=== PATIENT | female | born 1970 | race Caucasian/White ===

== ENCOUNTER 2021-07-01 16:23 | Inpatient (IN) | payer BC ==
[~2021-07-01] VITALS: Ht 160 cm; Wt 95.7 kg
--- NOTE | 2021-07-01 16:25 | NUR ---
PT TRANSPORTED TO CT VIA GURNEY WITH ACLS PROTOCOLS IN PLACE
--- NOTE | 2021-07-01 16:26 | NUR ---
TO ER BED 10, BIB FAMILY C/O HEADACHE X 1 WEEK AND L SIDED WEAKNESS, DIZZINESS, LKW 1557, STATED HAD BLURRED VISION ON THE LEFT PRIOR TO ARRIVAL, AAOX3, BREATHING EVEN AND NON LABORED, HR 109 UPON ARRIVAL, CONNECTED TO MONITOR, DR MAY AT BEDSIDE FOR EVAL
--- NOTE | 2021-07-01 16:27 | NUR ---
TELE REQUEST SENT
[2021-07-01] MEDS ORDERED: CT SWABBABLE VALVE TRANS SET 1 EA INFUS.SET MC ONE (16:28)
[2021-07-01] MEDS ORDERED: IOHEXOL-350 100 ML VIAL IV ONE (16:28)
[2021-07-01] MEDS ORDERED: IV NS 0.9% 250 ML IV ONE (16:29)
--- NOTE | 2021-07-01 16:37 | NUR ---
PT BACK FROM CT VIA [facility]
--- NOTE | 2021-07-01 16:45 | NUR ---
COVID SWAB DONE AND SENT TO LAB
[2021-07-01 17:18] LABS: BASOPHILS # (AUTO) 0.1 K/uL (0.0-0.2); BASOPHILS % (AUTO) 0.9 % (0.0-2.0); EOSINOPHILS % (AUTO) 2.6 % (0.0-6.0); HEMATOCRIT 38 % (33-45); HEMOGLOBIN 11.9 g/dL (11.5-14.8); LYMPHOCYTES # (AUTO) 2.9 K/uL (0.8-4.8); LYMPHOCYTES % (AUTO) 38.8 % (20.0-44.0); MEAN CORPUSCULAR HGB CONC 32 g/dl (31.0-36.0); MEAN CORPUSCULAR VOLUME 78 fL (82-100); MONOCYTES # (AUTO) 0.4 K/uL (0.1-1.30); MONOCYTES % (AUTO) 4.7 % (2.0-12.0); PLATELET COUNT (AUTO) 293 K/uL (150-450); RED BLOOD CELL COUNT(AUTO) 4.84 MIL/uL (4.0-5.2); WHITE BLOOD COUNT (AUTO) 7.5 K/uL (4.3-11.0)
--- NOTE | 2021-07-01 17:35 | NUR ---
NEURO ON-CALL,DR MABEL ALVARADO, WILL GIVE US A CALL BACK TO SPEAK WITH DR MAY
--- NOTE | 2021-07-01 17:54 | NUR ---
SHANNANLOGIST, CHARLA ALVARADO, SPEAKING TO DR. MAY
[2021-07-01] MEDS ORDERED: MECLIZINE HCL 25 MG TABLET ONE (17:58)
[2021-07-01] MEDS ORDERED: METOCLOPRAMIDE HCL 10 MG/2 ML VIAL IV ONE (18:00)
[2021-07-01] MEDS ORDERED: MECLIZINE HCL 12.5 MG TABLET PO ONE (18:00)
[2021-07-01 18:25] LABS: CALCIUM, SERUM 8.5 mg/dL (8.5-10.1); CARBON DIOXIDE 24 mmol/L (21-32); CHLORIDE 101 mmol/L (98-107); GLUCOSE 135 mg/dL (74-106); POTASSIUM 3.9 mmol/L (3.5-5.1); SODIUM SERUM 135 mmol/L (136-145); UREA NITROGEN, BLOOD 11 mg/dL (7-18)
--- NOTE | 2021-07-01 18:45 | NUR ---
SPOKE TO SON LEOLA [phone]
--- NOTE | 2021-07-01 19:17 | NUR ---
REPORT GIVEN TO JUAN VICTORIA FOR THERESE
[2021-07-01 21:50] VITALS: BP 110/59
--- NOTE | 2021-07-01 21:53 | NUR ---
PATIENT TRANSFERRED UNDER ACLS.
[2021-07-01] MEDS ORDERED: SIMVASTATIN 40 MG TABLET PO SCH (22:00)
--- NOTE | 2021-07-01 22:00 | NUR ---
TELE/RN ADMITTING NOTE RECEIVED REPORT FROM FIELD CHECKER JUAN. PATIENT ARRIVED TO UNIT VIA GURNEY AND 2 STAFF MEMBERS. ADMITTED TO ROOM 322-1 WITH ADMITTING DX OF R/O CVA. PATIENT IS ALERT AND ORIENTED X 4. ABLE TO MAKE NEEDS KNOWN. DENIES PAIN AT THIS TIME. CONTINUES ON ROOM AIR WITH NO S/SX OF RESPIRATORY DISTRESS NOTED. IV ACCESS TO LEFT AC #18G INTACT, PATENT AND SALINE LOCKED. NURSING SWALLOW EVAL DONE WITH PATIENT PASSING. NOTIFIED CHAIR MAKER MD BRENT GHOSH. DIET CHANGED TO NPO EXCEPT MEDS. ST TO EVAL IN AM. NIHSS SCORE 0. PATIENT DENIES NUMBNESS/TINGLING/VISUAL CHANGES AT THIS TIME. BEDSIDE COMMODE IN PLACE. PATIENT STATES SHE IS FULLY VACCINATED AGAINST COVID-19 WITH EMMANUEL AND EMMANUEL VACCINE (10/12/20) AND MODERNA BOOSTER (06/12/21). SKIN CHECK PERFORMED ON ADMISSION WITH NO SKIN ISSUES NOTED AT THIS TIME. PATIENT CONNECTED TO TELE MONITOR WITH CURRENT READING SR HR 68. PATIENT ORIENTED TO ROOM, CALL LIGHT AND UNIT. CALL LIGHT WITHIN REACH. ASPIRATION, FALL AND SAFETY PRECAUTIONS MAINTAINED. WILL CONTINUE TO MONITOR.
[2021-07-01] MEDS: BLOOD SUGAR DIAGNOSTIC 1 EACH STRIP IN SCH (22:46)
--- NOTE | 2021-07-01 23:00 | NUR ---
TELE/RN NOTE PATIENTS DOMESTIC PARTNER RHYS PHONE # [phone]
[2021-07-01 23:03] VITALS: BP 110/59
[2021-07-01] MEDS ORDERED: SIMVASTATIN 20 MG TABLET ONE (23:12)
[2021-07-02] VITALS: BP 112/59
[2021-07-02] MEDS ORDERED: BLOOD SUGAR DIAGNOSTIC 1 EACH STRIP IN SCH
[2021-07-02 04:00] VITALS: BP 114/47
[2021-07-02 06:38] LABS: BASOPHILS # (AUTO) 0.1 K/uL (0.0-0.2); EOSINOPHILS % (AUTO) 1.5 % (0.0-6.0); HEMATOCRIT 34 % (33-45); HEMOGLOBIN 10.8 g/dL (11.5-14.8); LYMPHOCYTES # (AUTO) 1.7 K/uL (0.8-4.8); LYMPHOCYTES % (AUTO) 31.6 % (20.0-44.0); MEAN CORPUSCULAR HGB CONC 32 g/dl (31.0-36.0); MEAN CORPUSCULAR VOLUME 78 fL (82-100); MONOCYTES # (AUTO) 0.2 K/uL (0.1-1.30); MONOCYTES % (AUTO) 3.8 % (2.0-12.0); NEUTROPHILS # (AUTO) 3.4 K/uL (1.8-8.9); NEUTROPHILS % (AUTO) 62.1 % (43.0-81.0); PLATELET COUNT (AUTO) 259 K/uL (150-450); RED BLOOD CELL COUNT(AUTO) 4.37 MIL/uL (4.0-5.2); WHITE BLOOD COUNT (AUTO) 5.4 K/uL (4.3-11.0)
[2021-07-02] MEDS: BLOOD SUGAR DIAGNOSTIC 1 EACH STRIP IN SCH ×4 (06:40→21:43)
--- NOTE | 2021-07-02 06:40 | NUR ---
TELE/RN CLOSING NOTE PATIENT CURRENTLY RESTING IN BED. AWAKE, ALERT AND ORIENTED X 4. ABLE TO MAKE NEEDS KNOWN. DENIES PAIN AT THIS TIME. CONTINUES ON ROOM AIR WITH NO S/SX OF RESPIRATORY DISTRESS NOTED. IV ACCESS TO LEFT AC #18G INTACT, PATENT AND SALINE LOCKED. CONTINUES ON NPO WITH MEDS TILL ST EVAL THIS AM. TELE MONITOR IN PLACE WITH CURRENT READING SR HR 63. DENIES NUMBNESS/TINGLING/HEADACHES/VISUAL CHANGES AT THIS TIME. CALL LIGHT WITHIN REACH. ASPIRATION, FALL AND SAFETY PRECAUTIONS MAINTAINED. WILL ENDORSE PLAN OF CARE TO ONCOMING SHIFT.
[2021-07-02 07:00] LABS: CALCIUM, SERUM 8.7 mg/dL (8.5-10.1); CREATININE 0.9 mg/dL (0.6-1.3); POTASSIUM 3.9 mmol/L (3.5-5.1)
--- NOTE | 2021-07-02 07:46 | NUR ---
CAN DRAGGER OPENING NOTES RECEIVED PATIENT RESTING IN BED. AWAKE, ALERT AND ORIENTED X 4. ABLE TO MAKE NEEDS KNOWN. DENIES PAIN AT THIS TIME. CONTINUES ON ROOM AIR WITH NO S/SX OF RESPIRATORY DISTRESS NOTED. IV ACCESS TO LEFT AC #18G INTACT, PATENT AND SALINE LOCKED. NPO EXCEPT MEDS TILL ST EVAL THIS AM. TELE MONITOR IN PLACE WITH CURRENT READING SR 78 BPM. DENIES NUMBNESS/TINGLING/HEADACHES/VISUAL CHANGES AT THIS TIME. CALL LIGHT WITHIN REACH. ASPIRATION, FALL AND SAFETY PRECAUTIONS MAINTAINED. WILL CONTINUE TO MONITOR PATIENT.
[2021-07-02 08:00] VITALS: BP 107/59
[2021-07-02] MEDS: ASPIRIN 81 MG TAB.CHEW PO SCH (08:03)
[2021-07-02 12:00] VITALS: BP 128/69
[2021-07-02 16:00] VITALS: BP 115/68
--- NOTE | 2021-07-02 18:40 | NUR ---
MAGNETIC PROSPECTING OPERATOR CLOSING NOTES PATIENT RESTING IN BED. AWAKE, ALERT AND ORIENTED X 4. ABLE TO MAKE NEEDS KNOWN. DENIES PAIN AT THIS TIME. CONTINUES ON ROOM AIR WITH NO S/SX OF RESPIRATORY DISTRESS NOTED. IV ACCESS TO LEFT AC #18G INTACT, PATENT AND SALINE LOCKED. TELE MONITOR IN PLACE WITH CURRENT READING SR. DENIES NUMBNESS/TINGLING/HEADACHES/VISUAL CHANGES DURING SHIFT. CALL LIGHT WITHIN REACH. ASPIRATION, FALL AND SAFETY PRECAUTIONS MAINTAINED. WILL ENDORSE TO EDITING COMPUTER PUBLISHER NURSE FOR THERESE.
--- NOTE | 2021-07-02 19:33 | NUR ---
RN OPENING NOTES RECEIVED PT IN BED, AWAKE. AOx4, ABLE TO MAKE NEEDS KNOWN. ON RA AND TOLERATING WELL. NO SOB NOTED. NO S/SX OF RESPIRATORY DISTRESS NOTED. IV ACCESS IN LAC #18. TELE MONITOR DETECTS SINUS RHYTHM WITH RATE OF 81. IV IS INTACT, PATENT, AND FLUSHING WELL. SAFETY PRECAUTIONS IN PLACE: BED IN LOWEST, LOCKED POSITION, SIDERAILS UPx2, AND BRAKES ON. TABLE AND CALL LIGHT WITHIN REACH. WILL CONTINUE TO MONITOR.
[2021-07-02 20:00] VITALS: BP 122/66
[2021-07-02] MEDS: SIMVASTATIN 20 MG TABLET PO SCH (21:34)
[2021-07-03] VITALS: BP 131/73
[2021-07-03 04:00] VITALS: BP 115/71
--- NOTE | 2021-07-03 05:34 | NUR ---
CARDIOVASCULAR SURGICAL TECH (JUSTO) NOTIFIED VIA TEXT.
[2021-07-03] MEDS: BLOOD SUGAR DIAGNOSTIC 1 EACH STRIP IN SCH ×5 (06:42→22:06)
--- NOTE | 2021-07-03 06:43 | NUR ---
RN CLOSING NOTES PT IN BED, AWAKE, USING PERSONAL COMPUTER. AOx4, ABLE TO MAKE NEEDS KNOWN. ON RA AND TOLERATING WELL. NO SOB NOTED. NO S/SX OF RESPIRATORY DISTRESS NOTED. IV ACCESS IN LAC #18. TELE MONITOR DETECTS SINUS RHYTHM WITH RATE OF 80s. IV IS INTACT, PATENT, AND FLUSHING WELL. AL NEEDS MET. PT KEPT CLEAN AND DRY. SAFETY PRECAUTIONS IN PLACE: BED IN LOWEST, LOCKED POSITION, SIDERAILS UPx2, AND BRAKES ON. TABLE AND CALL LIGHT WITHIN REACH. WILL ENDORSE TO ONCOMING SHIFT FOR THERESE.
--- NOTE | 2021-07-03 07:19 | NUR ---
CONTINUOUS MINER OPENING NOTES PT IN BED, AWAKE, USING PERSONAL COMPUTER. AOx4, ABLE TO MAKE NEEDS KNOWN. ON RA AND TOLERATING WELL. GCS 15 WITH NO MOTOR OR SENSORY DEFICIT AT THIS TIME. NO SOB NOTED. NO S/SX OF RESPIRATORY DISTRESS NOTED. IV ACCESS IN LAC #18. TELE MONITOR DETECTS SINUS RHYTHM WITH RATE OF 80s. IV IS INTACT, PATENT, AND FLUSHING WELL. AL NEEDS MET. PT KEPT CLEAN AND DRY. SAFETY PRECAUTIONS IN PLACE: BED IN LOWEST, LOCKED POSITION, SIDERAILS UPx2, AND BRAKES ON. TABLE AND CALL LIGHT WITHIN REACH. WILL CONTINUE TO MONITOR PATIENT.
[2021-07-03 08:00] VITALS: BP 124/83
[2021-07-03] MEDS: ASPIRIN 81 MG TAB.CHEW PO SCH (09:09)
--- NOTE | 2021-07-03 09:49 | NUR ---
OCC MED PHYSICIAN NOTE PATIENT PICKED-UP FOR MRI, TRANSPORTED VIA WHEELCHAIR. IN STABLE CONDITION.
[2021-07-03] MEDS ORDERED: MULT-1200 PO (11:59)
[2021-07-03 12:00] VITALS: BP 111/64
[2021-07-03] MEDS ORDERED: GADOTERATE MEGLUMINE 10 MMOL/20 ML VIAL IV ONE (14:02)
[2021-07-03 16:00] VITALS: BP 125/77
--- NOTE | 2021-07-03 19:17 | NUR ---
WASH DRILLER CLOSING NOTES PT IN BED, AWAKE, USING PERSONAL COMPUTER. AOx4, ABLE TO MAKE NEEDS KNOWN. ON RA AND TOLERATING WELL. GCS 15 WITH NO MOTOR OR SENSORY DEFICIT AT THIS TIME. NO SOB NOTED. NO S/SX OF RESPIRATORY DISTRESS NOTED. IV ACCESS IN LAC #18. TELE MONITOR DETECTS SINUS RHYTHM WITH RATE OF 80s. IV IS INTACT, PATENT, AND FLUSHING WELL. AL NEEDS MET. PT KEPT CLEAN AND DRY. SAFETY PRECAUTIONS IN PLACE: BED IN LOWEST, LOCKED POSITION, SIDERAILS UPx2, AND BRAKES ON. TABLE AND CALL LIGHT WITHIN REACH. WILL ENDORSE TO NEXT SHIFT FOR CONTINUITY OF CARE.
--- NOTE | 2021-07-03 19:50 | NUR ---
HEALTH CONCIERGE OPENING RECEIVED PATIENT IN BED WITH EYES CLOSED, EASY TO AROUSE. A/OX4. NO S/S OF APPARENT DISTRESS ON ROOM AIR. DENIES PAIN AT THIS TIME. TELE MONITOR READING SR 89 BPM. NO FLUIDS RUNNING AT THIS TIME. NO NEEDS AT THIS TIME. SAFETY IN PLACE. WILL CONTINUE WITH PATIENT'S CARE PLAN.
[2021-07-03 20:07] VITALS: BP 122/69
--- NOTE | 2021-07-03 21:20 | NUR ---
CAREER SERVICES DIRECTOR NOTE ECHO BEING DONE AT THIS TIME.
[2021-07-03] MEDS: SIMVASTATIN 20 MG TABLET PO SCH (21:59)
--- NOTE | 2021-07-03 22:07 | NUR ---
COMMERCIAL DIRECTOR NOTE BLOOD SUGAR 112
[2021-07-04 00:03] VITALS: BP 116/68
[2021-07-04 04:02] VITALS: BP 109/60
[2021-07-04 05:56] LABS: BASOPHILS # (AUTO) 0.1 K/uL (0.0-0.2); BASOPHILS % (AUTO) 0.8 % (0.0-2.0); EOSINOPHILS % (AUTO) 2.8 % (0.0-6.0); HEMATOCRIT 36 % (33-45); HEMOGLOBIN 11.4 g/dL (11.5-14.8); LYMPHOCYTES % (AUTO) 29.4 % (20.0-44.0); MEAN CORPUSCULAR HGB CONC 32 g/dl (31.0-36.0); MEAN CORPUSCULAR VOLUME 77 fL (82-100); MONOCYTES # (AUTO) 0.3 K/uL (0.1-1.30); MONOCYTES % (AUTO) 4.9 % (2.0-12.0); NEUTROPHILS # (AUTO) 4.1 K/uL (1.8-8.9); NEUTROPHILS % (AUTO) 62.1 % (43.0-81.0); PLATELET COUNT (AUTO) 241 K/uL (150-450); RED BLOOD CELL COUNT(AUTO) 4.64 MIL/uL (4.0-5.2); WHITE BLOOD COUNT (AUTO) 6.6 K/uL (4.3-11.0)
[2021-07-04 06:38] LABS: CALCIUM, SERUM 8.6 mg/dL (8.5-10.1); CREATININE 0.8 mg/dL (0.6-1.3); MAGNESIUM 2.3 mg/dL (1.8-2.4)
[2021-07-04] MEDS: BLOOD SUGAR DIAGNOSTIC 1 EACH STRIP IN SCH ×2 (06:44→12:03)
--- NOTE | 2021-07-04 06:45 | NUR ---
IVY VICTORIA NOTE BLOOD SUGAR 95. Addendum: 07/04/21 at 0646 by THIAGO MORALES RN DISREGARD
--- NOTE | 2021-07-04 06:46 | NUR ---
SALES FORCE DEVELOPER NOTE BLOOD SUGAR 102.
--- NOTE | 2021-07-04 07:27 | NUR ---
IS SUPPORT ANALYST NOTE REPORT GIVEN TO LIANET FOR CONTINUITY OF CARE. NO SIGNIFICANT CHANGE. NEEDS ATTENDED.
--- NOTE | 2021-07-04 07:38 | NUR ---
RN OPENING NOTE- RECEIVED PATIENT IN BED A/OX4. NO S/S OF APPARENT DISTRESS ON ROOM AIR. DENIES PAIN AT THIS TIME. TELE MONITOR READING SR 86 BPM. NO FLUIDS RUNNING AT THIS TIME. NO NEEDS AT THIS TIME. SAFETY IN PLACE. WILL CONTINUE WITH PATIENT'S CARE PLAN.
[2021-07-04 08:17] VITALS: BP 128/77
[2021-07-04] MEDS: ASPIRIN 81 MG TAB.CHEW PO SCH (08:45)
[2021-07-04 12:20] VITALS: BP 124/70
--- NOTE | 2021-07-04 12:36 | NUR ---
SS Consult: SS consult for stroke. Pt. Is a 51-year-old female. Pt. demonstrates adequate insight to the reason for hospitalization. Per pt., she was brought to hospital by son due to having left side numbness on her face. Pt. stated that the numbness started on Sunday and this has not happened in the past. Pt. was oriented x4, alert, and cooperative. During interview, pt. was capable of following directions, made appropriate eye-contact, and appeared well-groomed. Pt.s speech was at a normal rate. Pt.s mood was elevated. SHAGUFTA explored pt.s hx of mental health and substance abuse. Pt. reported no hx of mental health, substance abuse, suicidal or homicidal ideation. Pt. denies auditory hallucinations, visual hallucinations, paranoia, or delusions. SHAGUFTA explored pt.s living situation. Per pt., she resides with her and son [[id number] [facility]. [place] [id number]]. Per pt., she reports having adequate support from family. SHAGUFTA explored pt.s financial status. Per pt., she is currently working at a [employer]. Pt. stated that she is feeling great and has no complaints. Plan: SHAGUFTA provided available resources and pt. accepted. Once discharge, per pt., she will return to [address] [place] [address]. [address] [place] [address]. Resources Provided: Stroke Empowerment Packet
--- NOTE | 2021-07-04 12:37 | NUR ---
SW conducted a PHQ9 on pt. and she scored a 1. No need for a psych consult.
[2021-07-04] MEDS ORDERED: ASPI-1169 PO (13:31)
[2021-07-04] MEDS ORDERED: SIMV-46 PO (13:31)
--- NOTE | 2021-07-04 14:04 | NUR ---
RN NOTE- PT TO RADIOLOGY FOR MRI BRAIN
--- NOTE | 2021-07-04 14:30 | NUR ---
RN DC NOTE- PT DC HOME INTO CARE OF FAMILY. VS STABLE . DC INSTRUCTIONS GIVEN REVIEWED AND UNDERSTOOD. PIV SITE DC';D, ID WRISTBAND REMOVED, ESCORTED OFF UNIT TO FAMILY DOWNSTAIRS
== END 2021-07-04 14:30 | disposition home or self-care (01) | DRG 69 ==
LOC: ER 16:25 → TELE 21:25
PROVIDERS: ADMIT Nurse Practitioner Acute Care; ATTEND Hospitalist
DX: G45.0 Vertebro-basilar artery syndrome (principal); R29.701 NIHSS score 1; I10 Essential (primary) hypertension; E66.9 Obesity, unspecified; Z82.49 Family history of ischemic heart disease and other diseases of the circulatory system; Z68.34 Body mass index [BMI] 34.0-34.9, adult; R73.9 Hyperglycemia, unspecified; Z20.822 Contact with and (suspected) exposure to COVID-19
CPT/HCPCS: 36415; 70450-TC; 70496-TC; 70498-TC; 70553-TC; 71045-TC; 80048-TC; 80061-TC; 82962-TC; 83735-TC; 84100-TC; 84484-TC; 85025-TC; 85730-TC; 87081-TC; 92526; 92611-TC; 93307-TC; 97530-TC; A9575; C9803; G0378; J2765; J7030; J7050; J8597; Q9967